=== PATIENT | male | born 1990 | race Caucasian/White ===

== ENCOUNTER 2018-12-09 09:35 | Emergency (ER) | payer OTHER ==
[2018-12-09 10:24] VITALS: BP 151/68
--- NOTE | 2018-12-09 10:47 | UC ---
Respiratory Complaint HPI - HPI Summary HPI Summary: dry cough for one week. not a smoker. no sick contacts. keeps him up at night. used to get bronchitis as a kid often. - History of Current Complaint Chief Complaint: UCRespiratory Stated Complaint: COUGH Time Seen by Provider: 12/09/18 10:37 Hx Obtained From: Patient Pain Intensity: 0 Pain Scale Used: 0-10 Numeric Character: Cough: Nonproductive Aggravating Factors: Nothing Alleviating Factors: Nothing - Allergies/Home Medications Allergies/Adverse Reactions: Allergies Allergy/AdvReac Type Severity Reaction Status Date / Time bupropion [From Wellbutrin] Allergy "Electrical Verified 12/09/18 10:25 Shock" sensation metoclopramide [From Reglan] Allergy Stiffness Verified 12/09/18 10:25 PMH/Surg Hx/FS Hx/Imm Hx - Surgical History Surgical History: None - Social History Alcohol Use: Rare Substance Use Type: None Smoking Status (MU): Never Smoked Tobacco Review of Systems All Other Systems Reviewed And Are Negative: Yes Constitutional: Positive: Negative Skin: Negative: Rash ENT: Positive: Sinus Congestion. Negative: Sore Throat, Ear Ache Respiratory: Positive: Cough. Negative: Shortness Of Breath Cardiovascular: Positive: Negative Neurological: Negative: Headache Physical Exam Triage Information Reviewed: Yes Appearance: Well-Appearing Vital Signs: Initial Vital Signs Temp 98.3 F 12/09/18 10:19 Pulse 72 12/09/18 10:19 Resp 16 12/09/18 10:19 BP 151/68 12/09/18 10:19 Pulse Ox 98 12/09/18 10:19 Vital Signs Reviewed: Yes Eyes: Positive: Conjunctiva Clear ENT: Positive: Pharynx normal, TMs normal, Uvula midline Neck: Positive: Supple, Nontender, No Lymphadenopathy. Negative: Nuchal Rigidity Respiratory Exam: Normal Cardiovascular Exam: Normal Skin: Negative: Rashes Respiratory Course/Dx - Course Course Of Treatment: Acute dry cough ; afebrile. will tx cough as this is likely viral. blood pressure slightly elevated; he should speak to pcp about this. no s/sx of pneumonia. exam unremarkable. - Differential Dx/Diagnosis Differential Diagnosis/HQI/PQRI: Asthma, Bronchitis, Sinusitis Provider Diagnosis: Bronchitis Discharge - Sign-Out/Discharge Documenting (check all that apply): Patient Departure All imaging exams completed and their final reports reviewed: No Studies - Discharge Plan Condition: Good Disposition: HOME Prescriptions: Acetaminoph/Cod 120/12 mg LIQ* [Tylenol/Codeine 120/12 LIQ*] 10 ml PO BEDTIME PRN 6 Days #60 udc MDD 10ml PRN Reason: Cough Patient Education Materials: Acute Bronchitis (ED) Referrals: Michael Norman MD [Primary Care Provider] - Additional Instructions: if worsening please follow up with pcp or return to urgent care - Billing Disposition and Condition Condition: GOOD Disposition: Home
== END 2018-12-09 11:12 | disposition home or self-care (01) ==
LOC: UCCORT 09:35
DX: J40 Bronchitis, not specified as acute or chronic (principal); Z88.8 Allergy status to other drugs, medicaments and biological substances
CPT/HCPCS: 99212; G0463